=== PATIENT | male | born 1955 | race Asian ===

== ENCOUNTER 2017-03-20 11:37 | Emergency (ER) | payer MEDICARE, MEDICAID ==
[~2017-03-20] VITALS: Ht 157.5 cm; Wt 59.0 kg
[2017-03-20] MEDS ORDERED: BACITRACIN-P28.35 GM TP (12:07)
[2017-03-20] MEDS ORDERED: IBUPROFEN400 MG ORAL (12:07)
--- NOTE | 2017-03-20 12:08 | Emergency Room Report ---
History of Present Illness General Chief Complaint: Skin Rash/Abscess Source: Patient Present Illness HPI 61 yo male presents to ER complaining of rash on upper left lip. Patient reports symptoms have been present for 3 days. Patient being treated with "penicillin antibiotic" for 1 day by primary care provider. Patient states he lives in a home health care facility; states he has hx of schizophrenia. Patient denies fever, chest pain, SOB. Patient denies difficulty eating, nausea, vomiting. Allergies: Coded Allergies: No Known Allergies (Unverified , 03/20/17) Patient History Past Medical History: see triage record Social History: Denies: smoking, alcohol use, drug use Reviewed Nursing Documentation: PMH: Agreed, PSxH: Agreed Nursing Documentation-PMH Past Medical History: No History, Except For History Of Psychiatric Problem: Yes - schydsophrenia Review of Systems All Other Systems: negative except mentioned in HPI Physical Exam Vital Signs Date Time Temp Pulse Resp B/P (MAP) Pulse Ox O2 Delivery O2 Flow Rate FiO2 03/20/17 11:50 98.2 87 17 120/71 95 Room Air Sp02 EP Interpretation: reviewed, normal General Appearance: no apparent distress, alert, GCS 15, non-toxic Head: normocephalic, atraumatic Eyes: bilateral eye normal inspection, bilateral eye PERRL ENT: hearing grossly normal, normal pharynx, no angioedema, normal voice, uvula midline, moist mucus membranes, other - no tooth tendernes Neck: full range of motion, supple/symm/no masses Respiratory: chest non-tender, lungs clear, normal breath sounds, speaking full sentences Cardiovascular #1: regular rate, rhythm, no edema Musculoskeletal: back normal, digits/nails normal, gait/station normal, normal range of motion, non-tender Neurologic: alert, oriented x3, responsive, motor strength/tone normal, sensory intact, speech normal Psychiatric: mood/affect normal Skin: normal color, no rash, warm/dry, well hydrated, other - upper lip, left lateral border: mild erythema, edema, TTP, dried pus present, no active draining , no ecchymosis, no blood draining Medical Decision Making PA Attestation Dr. Santana is my supervising Physician whom patient management has been discussed with. Diagnostic Impression: Primary Impression: Cellulitis ER Course Pt. presents to the ED c/o cellulitis.. Ddx considered but are not limited to rash, cellulitis, abscess, atopic dermatitis. Vital signs: are WNL, pt. is afebrile H&PE are most consistent with cellulitis. ORDERS: None required at this time, the diagnosis is clinical ED INTERVENTIONS: Band-aid Ice pack per patient request DISCHARGE: -Rx provided for Ibuprofen -Rx provided for Bacitracin At this time pt. is stable for d/c to home. Will provide printed patient care instructions, and any necessary prescriptions. Patient instructed to complete current course of antibiotics. Care plan and follow up instructions have been discussed with the patient prior to discharge. Patient instructed to follow-up with primary care provider in 3 - 5 days and discuss further referral to securities underwriter as needed. Patient questions asked and answered. ER precautions given. Patient instructed to return to ER immediately for any new or worsening of symptoms including but not limited to increasing SOB, persistent fever, intractable vomiting, calf pain. Last Vital Signs Date Time Temp Pulse Resp B/P (MAP) Pulse Ox O2 Delivery O2 Flow Rate FiO2 03/20/17 11:50 98.2 87 17 120/71 95 Room Air Disposition: HOME, SELF-CARE Condition: Stable Scripts Ibuprofen* (MOTRIN*) 400 Mg Tablet 400 MG ORAL Q8H, #30 TAB 0 Refills Prov: Marek Heard 03/20/17 Bacitracin/Polymyxin B Sulfate (BACITRACIN-POLYMYXIN OINTMENT) 28.35 Gm Oint...g. 1 APPLIC TP BID for 7 Days, GM Prov: Marek Heard 03/20/17 Patient Instructions: Cellulitis, [id number] Additional Instructions: Followup with primary care provider in 3 -5 days for wound check. Continue to take antibiotics as directed. Take medications as directed. Patient questions asked and answered. ER precautions given, patient instructed to return to ER immediately for any new or worsening of symptoms. Marek Heard Mar 20, 2017 12:08
[2017-03-20 12:14] VITALS: BP 120/71
== END 2017-03-20 12:15 | disposition home or self-care (01) ==
LOC: EMR 12:00
DX: K13.0 Diseases of lips (principal)
CPT/HCPCS: 99284

== ENCOUNTER 2017-10-08 07:40 | Emergency (ER) | payer MEDICARE, MEDICAID ==
[~2017-10-08] VITALS: Ht 162.6 cm; Wt 61.7 kg
[~2017-10-08 07:40] MED LIST: BACITRACIN-P28.35 GM TP; IBUPROFEN400 MG ORAL
[2017-10-08] MEDS ORDERED: SEROQUEL200 MG ORAL (07:50)
[2017-10-08 08:02] VITALS: BP 122/71
[2017-10-08] MEDS ORDERED: CEPHALEXIN500 MG ORAL (08:26)
--- NOTE | 2017-10-08 08:26 | Emergency Room Report ---
History of Present Illness General Chief Complaint: General Complaint Source: Patient Present Illness [facility] This patient c/o pain/redness/swelling tip right nose. About two weeks. No known trauma, no fever, no rhinitis. No other complaint. He does have a PMD. Allergies: Coded Allergies: No Known Allergies (Unverified , 03/20/17) Nursing Documentation-[facility] Past Medical History: No History, Except For History Of Psychiatric Problem: Yes - Schizophrenia Review of Systems Constitutional: Reports: no symptoms Eye: Reports: no symptoms ENT: Reports: see HPI, nose pain Respiratory: Reports: no symptoms Cardiovascular: Reports: no symptoms Gastrointestinal: Reports: no symptoms Genitourinary: Reports: no symptoms Musculoskeletal: Reports: no symptoms Skin: Reports: no symptoms Psychiatric: Reports: no symptoms Neurological: Reports: no symptoms Endocrine: Reports: no symptoms Hematologic/Lymphatic: Reports: no symptoms Allergic: Reports: no symptoms All Other Systems: negative except mentioned in HPI Physical Exam Vital Signs Date Time Temp Pulse Resp B/P (MAP) Pulse Ox O2 Delivery O2 Flow Rate FiO2 10/08/17 07:47 98.2 83 14 122/71 97 Room Air 98.2 Sp02 EP Interpretation: reviewed, normal General Appearance: normal inspection, well appearing, no apparent distress, alert, GCS 15, non-toxic Head: normocephalic, atraumatic Eyes: bilateral eye normal inspection, bilateral eye PERRL, bilateral eye EOMI ENT: hearing grossly normal, normal pharynx, no angioedema, normal voice, moist mucus membranes, other - pea-size swelling/tender inside right upper distal nares Neck: normal inspection, full range of motion, supple, no meningismus, no bony tend Respiratory: normal inspection, lungs clear, normal breath sounds, no rhonchi, no respiratory distress, no retraction, no accessory muscle use, no wheezing Cardiovascular #1: normal inspection, regular rate, rhythm, no edema Gastrointestinal: normal inspection, normal bowel sounds, non tender, soft, no mass, non-distended Musculoskeletal: gait/station normal, normal range of motion Neurologic: normal inspection, alert, oriented x3, responsive, motor strength/ tone normal Psychiatric: normal inspection, judgement/insight normal, memory normal Suicide Risk Assessment: Suicidal Ideation: No Had intent to initiate attempt: No Pt's plan for suicide attempt: No Has means to complete attempt: No Skin: normal inspection, normal color, no rash, warm/dry Medical Decision Making Diagnostic Impression: Primary Impression: Cellulitis ER Course This patient has swelling/tenderness inside most distal aspect right upper nares. Like a pimple/pea size but no area of fluctuance. Tender. C/w cellulitis/ ?small abscess. Will try Keflex and if not improved will need to see PMD for ENT referral possibly I&D/surgical. Last Vital Signs Date Time Temp Pulse Resp B/P (MAP) Pulse Ox O2 Delivery O2 Flow Rate FiO2 10/08/17 08:02 98.2 14 122/71 97 Room Air 98.2 10/08/17 07:47 83 Disposition: HOME, SELF-CARE Condition: Stable Scripts Cephalexin* (KEFLEX*) 500 Mg Capsule 500 MG ORAL EVERY 12 HOURS, #20 CAP 0 Refills Prov: Kehinde Hunter M.D. 10/08/17 Referrals: NOT CHOSEN IPA/,REFERRING (PCP) Patient Instructions: Cellulitis, [id number] Kehinde Hunter M.D. Oct 08, 2017 08:26
[2017-10-08 08:39] VITALS: BP 110/72
== END 2017-10-08 08:40 | disposition home or self-care (01) ==
LOC: EMR 08:17
DX: J34.0 Abscess, furuncle and carbuncle of nose (principal); E75.29 Other sphingolipidosis; F20.9 Schizophrenia, unspecified
CPT/HCPCS: 99283